=== PATIENT | male | born 1950 | race Caucasian/White ===

== ENCOUNTER 2016-12-18 21:52 | Emergency (ER) | payer OTHER ==
[2016-12-18 22:24] VITALS: BP 114/66; PULSE 88; TEMP 97.9; BMI 26.0
--- NOTE | 2016-12-18 23:12 | PDOC ---
History of Present Illness - General History Source: Patient Exam Limitations: No Limitations - History of Present Illness Initial Comments: 12/18/16 23:19 The patient is a 66 year old male with significant past medical history of hypertension who presents to the ED with head laceration s/p fall 1 hour prior to presentation. Patient reports he was leaning against the back elevated doors , when the doors open after someone pressed the button and caused him to fall back onto the concrete ground, sustaining a laceration on the head. He states he was bleeding profusely and thus EMS was contacted. Denies headache, dizziness , LOC, changes to vision, nausea, or vomiting. The patient denies fever, chills, cough, SOB, chest pain, abdominal pain, and diarrhea. Allergies: NKDA Social History: No alcohol, tobacco, or drug use reported. Past Surgical History: None reported PCP: None reported <Suzy Hawley - Last Filed: 12/18/16 23:19> - General History Source: Patient <VigneshDirk cordova - Last Filed: 12/18/16 23:42> - General Chief Complaint: Injury Stated Complaint: FALL Time Seen by Provider: 12/18/16 22:54 Past History <Suzy Hawley - Last Filed: 12/18/16 23:19> - Immunization History Immunization Up to Date: Yes - Psycho/Social/Smoking Cessation Hx Suicidal Ideation: No Smoking History: Former smoker Have you smoked in the past 12 months: No Information on smoking cessation initiated: No <Dirk Thompson - Last Filed: 12/18/16 23:42> - Past Medical History Allergies/Adverse Reactions: Allergies Allergy/AdvReac Type Severity Reaction Status Date / Time No Known Allergies Allergy Verified 12/18/16 22:21 Home Medications: Ambulatory Orders Bupropion HCl [Wellbutrin Xl -] 300 mg PO DAILY 12/18/16 Losartan Potassium [Cozaar -] 50 mg PO DAILY 12/18/16 Rifaximin [Xifaxan] 550 mg PO BID 12/18/16 Vitamin E Acid Succinate [Vitamin E] 400 unit PO DAILY 12/18/16 Review of Systems - Review of Systems Able to Perform ROS?: Yes Comments:: 12/18/16 23:19 CONSTITUTIONAL: Absent: fever, no chills, no fatigue EYES: Absent: visual changes ENT: Absent: ear pain, no sore throat CARDIOVASCULAR: Absent: chest pain, no palpitations RESPIRATORY: Absent: cough, no SOB GI: Absent: abdominal pain, no nausea, no vomiting, no constipation, no diarrhea GENITOURINARY: Absent: dysuria, no frequency, no hematuria MUSCULOSKELETAL: Absent: back pain, no arthralgia, no myalgia SKIN: Absent: rash NEURO: +head laceration Absent: headache <Suzy Hawley - Last Filed: 12/18/16 23:19> *Physical Exam - Vital Signs Last Vital Signs Temp Pulse Resp BP Pulse Ox 97.9 F 88 18 114/66 97 12/18/16 22:22 12/18/16 22:22 12/18/16 22:22 12/18/16 22:22 12/18/16 22:22 - Physical Exam Comments: 12/18/16 23:19 GENERAL: Well-appearing, well-nourished. No apparent distress. HEENT: Normocephalic. 5cm superficial linear laceration in the superior occipital region of the head. No racoon or mae sign. PERRL, EOM intact. No hemotympanum. CARDIOVASCULAR: Normal S1, S2. Regular rate and rhythm. PULMONARY: Clear to auscultation bilaterally. ABDOMEN: Soft, non-distended, non-tender. EXTREMITIES: Normal ROM in all four extremities. No gross deformities. SKIN: Warm, dry. No rash NEUROLOGICAL: No focal neurological deficits. <Suzy Hawley - Last Filed: 12/18/16 23:19> - Vital Signs Last Vital Signs Temp Pulse Resp BP Pulse Ox 97.9 F 88 18 114/66 97 12/18/16 22:22 12/18/16 22:22 12/18/16 22:22 12/18/16 22:22 12/18/16 22:22 <Dirk Thompson - Last Filed: 12/18/16 23:42> Procedures - Laceration/Wound Repair Hand Wound Length: 2.6 to 5.0 cm Wound Explored: clean Wound's Depth, Shape: superficial, linear Irrigated w/ Saline: Yes Betadine Prep: Yes Anesthesia: 1% Lidocaine Amount of Anesthetic (ccs): 7 Wound Repaired With: Sutures Suture Size/Type: 4:0 Number of Sutures: 8 Layer Closure: No Sterile Dressing Applied: Yes Splint Applied: No Progress: 12/18/16 23:42 Pt tolerated procedure well. <Dirk Thompson - Last Filed: 12/18/16 23:42> Medical Decision Making - Medical Decision Making 12/18/16 23:41 Dr. Thompson: The scribe's documentation has been prepared under my direction and personally reviewed by me in its entirery. I confirm that the note above accurately reflects all work, treatment, procedures, and medical decision making performed by me. <Dirk Thompson - Last Filed: 12/18/16 23:42> *DC/Admit/Observation/Transfer - Attestations Scribe Attestion: 12/18/16 23:20 Documentation prepared by Suzy Hawley, acting as medical equipment technician for Dirk Thompson MD <Suzy Hawley - Last Filed: 12/18/16 23:19> - Discharge Dispostion Admit: No <Dirk Thompson - Last Filed: 12/18/16 23:42> Diagnosis at time of Disposition: Scalp laceration Qualifiers: Encounter type: initial encounter Qualified Code(s): S01.01XA - Laceration without foreign body of scalp, initial encounter - Discharge Dispostion Disposition: HOME Condition at time of disposition: Stable - Referrals Referrals: STAFF,NOT ON [Primary Care Provider] - Rain Vanessa MD [Staff Physician] - - Patient Instructions Printed Discharge Instructions: DI for Closed Head Injury, DI for Laceration Repair -- Simple Additional Instructions: Keep wound clean and dry. wash with soap and water. Have sutures removed in 7 days when you get home.
== END 2016-12-18 23:47 | disposition home or self-care (01) ==
LOC: JER 21:52
PROC: 0HQ0XZZ Repair Scalp Skin, External Approach (ICD-10-PCS; principal; 2016-12-18)
DX: S01.01XA Laceration without foreign body of scalp, initial encounter (principal); W01.198A Fall on same level from slipping, tripping and stumbling with subsequent striking against other object, initial encounter; Y93.89 Activity, other specified; Y92.89 Other specified places as the place of occurrence of the external cause
CPT/HCPCS: 99281-25